=== PATIENT | female | born 1995 | race African-American/Black ===

== ENCOUNTER 2017-01-20 11:36 | Outpatient (CLI) | payer OTHER ==
--- NOTE | 2017-01-20 15:17 | ULT ---
OB ULTRASOUND: Date: 01/20/17 HISTORY: Size and dates. FINDINGS: Single viable intrauterine is seen. Gestational age by ultrasound is 19 weeks/0 days. Biom etry measurements are consistent as below. BPD: 19 week/2 days HC: 19 weeks/0 days AC: 18 weeks/5 days FL: 19 weeks/3 days EFW: 271 gm. Amniotic Fluid: Within normal range. KARLENE recorded at 12.80 cm. Position: Vertex. Placenta: Anterior. No evidence of placenta previa heart rate: 141 beats/minute. Intracranial contents, face, four chamber heart, stomach, kidneys, bladder, umbilical cord, cord ins ertion, spine, and extremities were all visualized. IMPRESSION: 19 weeks and 0 days gestation by ultrasound measurement. No abnormality identified. POS: [facility]
== END 2017-01-20 11:37 | disposition home or self-care (01) ==
LOC: NAV ULT 11:36
PROVIDERS: ATTEND Family Medicine
DX: Z34.02 Encounter for supervision of normal first pregnancy, second trimester (principal)
CPT/HCPCS: 76805

== ENCOUNTER 2018-12-21 14:32 | Emergency (ER) | payer SELFPAY ==
[2018-12-21 14:56] LABS: Bilirubin Negative (Negative); Blood, Urine Negative (Negative); Clarity Clear (Clear); Glucose, Urine (Dipstick) Negative (Negative); Leukocyte Negative (Negative); Nitrite Negative (Negative); Protein, Urine (Dipstick) Negative (Neg-Trace); Specific Gravity, Urine 1.015 (1.005-1.030); pH, Urine 8.5 (5.0-9.0)
[2018-12-21 15:06] LABS: Pregnancy Test - Urine (BHCG) Negative (Negative); Pregu Control Background? CLEAR/WHITE (CLR/WHITE); Pregu Control Bar Appear? YES (CONTROL BAR); Specific Gravity 1.015 (1.002-1.036)
[2018-12-21] MEDS ORDERED: Ondansetron ODT 4 MG TAB ONE (15:18)
[2018-12-21] MEDS ORDERED: Acetaminophen 500 MG TAB ONE (15:18)
[2018-12-21] MEDS ORDERED: Ketorolac Tromethamine 60 MG/2 ML VIAL ONE (15:18)
== END 2018-12-21 15:40 | disposition home or self-care (01) ==
LOC: NAV ERS 14:32
DX: R51 Headache (principal); M54.5 Low back pain; R11.0 Nausea
CPT/HCPCS: 81003; 81025; 96372; J1885; Q0162

== ENCOUNTER 2019-07-16 15:19 | Emergency (ER) | payer SELFPAY ==
[2019-07-16 16:25] LABS: Pregnancy Test - Urine (BHCG) Negative (Negative); Pregu Control Background? CLEAR/WHITE (CLR/WHITE); Pregu Control Bar Appear? YES (CONTROL BAR); Specific Gravity 1.029 (1.002-1.036)
[2019-07-16 17:16] LABS: Bilirubin Small (Negative); Blood, Urine Negative (Negative); Clarity Clear (Clear); Glucose, Urine (Dipstick) Negative (Negative); Leukocyte Trace (Negative); Nitrite Negative (Negative); Protein, Urine (Dipstick) 30 mg/dL (Neg-Trace)
[2019-07-16 17:25] LABS: RBC/HPF 0-3 HPF (0-3)
[2019-07-16 17:26] LABS: Bacteria/HPF Rare-Few HPF (None Seen); WBC/HPF 0-3 HPF (0-3)
[2019-07-17 20:46] LABS: Chlam.trachomatis by PCR,Urine Not Detected (NotDetected)
== END 2019-07-16 17:35 | disposition home or self-care (01) ==
LOC: NAV ERS 15:19
DX: R51 Headache (principal); R10.9 Unspecified abdominal pain; R10.823 Right lower quadrant rebound abdominal tenderness; R10.824 Left lower quadrant rebound abdominal tenderness
CPT/HCPCS: 81003; 81015; 81025; 87491; 87591; 99284

== ENCOUNTER 2020-09-15 14:29 | Emergency (ER) | payer SELFPAY ==
[2020-09-15 15:02] LABS: Pregnancy Test - Urine (BHCG) Negative (Negative); Pregu Control Background? CLEAR/WHITE (CLR/WHITE); Pregu Control Bar Appear? YES (CONTROL BAR); Specific Gravity 1.025 (1.002-1.036)
[2020-09-15] MEDS ORDERED: Acetaminophen 500 MG TAB ONE (15:11)
[2020-09-15 15:41] LABS: Bilirubin Small (Negative); Blood, Urine Negative (Negative); Glucose, Urine (Dipstick) Negative (Negative); Ketone, Urine Negative (Negative); Leukocyte Moderate (Negative); Nitrite Negative (Negative); Protein, Urine (Dipstick) Trace mg/dL (Neg-Trace); Specific Gravity, Urine 1.025 (1.005-1.030); Urobilinogen > or = 8.0 mg/dL (Less than 2)
[2020-09-15 15:47] LABS: Clarity SL HAZY (Clear)
[2020-09-15 15:49] LABS: Bacteria/HPF 1+ HPF (None Seen); RBC/HPF 0-3 HPF (0-3)
== END 2020-09-15 16:00 | disposition home or self-care (01) ==
LOC: NAV ERS 14:29
DX: N39.0 Urinary tract infection, site not specified (principal)
CPT/HCPCS: 81003; 81015; 81025; 87086; 99284

== ENCOUNTER 2023-02-01 13:17 | Emergency (ER) | payer OTHER, SELFPAY | END 2023-02-01 13:50 | disposition home or self-care (01) | LOC: NAV ERS 13:17 | DX: Z11.3 Encounter for screening for infections with a predominantly sexual mode of transmission (principal) | CPT/HCPCS: 99281 ==

== ENCOUNTER 2023-12-16 21:22 | Emergency (ER) | payer SELFPAY ==
[2023-12-16] MEDS ORDERED: Boostrix 0.5 ML (Tdap) VIAL (>/=7 yrs of age) ONE (22:03)
== END 2023-12-16 22:55 | disposition home or self-care (01) ==
LOC: NAV ERS 21:22
DX: S61.011A Laceration without foreign body of right thumb without damage to nail, initial encounter (principal); Z23 Encounter for immunization; W25.XXXA Contact with sharp glass, initial encounter
CPT/HCPCS: 12002; 90471; 90715